=== PATIENT | female | born 1945 | race Two or more races ===

== ENCOUNTER 2022-03-23 07:15 | Inpatient (IN) | payer OTHER ==
[~2022-03-23] VITALS: Ht 160 cm; Wt 84.4 kg
[2022-03-23] MEDS ORDERED: LIPITOR40 M1 PO (08:28)
[2022-03-23] MEDS ORDERED: ATACAND16 MG PO (08:28)
[2022-03-23] MEDS ORDERED: PANTOPRAZOLE SO40 MG PO (08:28)
[2022-03-23] MEDS ORDERED: SYNTHROID125 MCG PO (08:29)
[2022-03-27] MEDS ORDERED: CLOTRIMAZOLE-BE15 G1 (10:31)
[2022-03-27] MEDS ORDERED: CANDESARTAN-HC1 EAC1 (10:31)
[2022-03-29] MEDS ORDERED: XARELTO10 MG PO (06:15)
[2022-03-29] MEDS ORDERED: OXYC1TAB9 PO (06:15)
[2022-03-29] MEDS ORDERED: INTEGRA PLUS C1 EACH PO (06:15)
[2022-03-29] MEDS ORDERED: BACTRIM DS TAB1 EACH PO (06:15)
== END 2022-03-29 12:56 | DRG 470 ==
LOC: O/R 03-27 05:25 → SURH 03-27 07:00
PROVIDERS: ADMIT Orthopaedic Surgery Sports Medicine; ATTEND Orthopaedic Surgery Sports Medicine
PROC: 0SRC0J9 Replacement of Right Knee Joint with Synthetic Substitute, Cemented, Open Approach (ICD-10-PCS; principal; 2022-03-27 07:00)
DX: M17.11 Unilateral primary osteoarthritis, right knee (principal); Z96.651 Presence of right artificial knee joint; E03.9 Hypothyroidism, unspecified; E78.5 Hyperlipidemia, unspecified; K21.9 Gastro-esophageal reflux disease without esophagitis; I10 Essential (primary) hypertension; Z20.822 Contact with and (suspected) exposure to COVID-19